=== PATIENT | female | born 1985 | race Caucasian/White ===

== ENCOUNTER 2018-12-25 12:52 | Emergency (ER) | payer OTHER ==
[~2018-12-25] VITALS: Ht 175.2 cm; Wt 68.0 kg
[2018-12-25] MEDS ORDERED: AMOXICILLIN500 M2 PO (14:40)
[2018-12-25] MEDS ORDERED: DIFLUCAN150 MG PO (14:42)
== END 2018-12-25 14:49 | disposition home or self-care (01) ==
LOC: ED 12:52
DX: J02.9 Acute pharyngitis, unspecified (principal); R51 Headache; H92.02 Otalgia, left ear; R09.89 Other specified symptoms and signs involving the circulatory and respiratory systems; Z88.0 Allergy status to penicillin

== ENCOUNTER 2019-04-06 17:57 | Emergency (ER) | payer OTHER ==
[~2019-04-06] VITALS: Ht 175.2 cm; Wt 72.6 kg
[~2019-04-06 17:57] MED LIST: AMOXICILLIN500 M2 PO; DIFLUCAN150 MG PO
[2019-04-06] MEDS ORDERED: AMOXICILLIN500 M2 PO (20:06)
== END 2019-04-06 20:11 | disposition home or self-care (01) ==
LOC: ED 17:57
DX: J32.9 Chronic sinusitis, unspecified (principal); Z88.0 Allergy status to penicillin; Z79.2 Long term (current) use of antibiotics

== ENCOUNTER 2019-04-09 14:04 | Emergency (ER) | payer OTHER ==
[~2019-04-09] VITALS: Ht 175.2 cm; Wt 72.6 kg
[2019-04-09] MEDS ORDERED: PROAIR HFA8.5 GM INH (15:43)
[2019-04-09] MEDS ORDERED: ZOFRAN4 MG PO (15:43)
== END 2019-04-09 16:15 | disposition home or self-care (01) ==
LOC: ED 14:04
DX: J10.1 Influenza due to other identified influenza virus with other respiratory manifestations (principal); R11.2 Nausea with vomiting, unspecified; R07.9 Chest pain, unspecified; F17.200 Nicotine dependence, unspecified, uncomplicated; Z88.0 Allergy status to penicillin; Z79.2 Long term (current) use of antibiotics

== ENCOUNTER 2020-11-14 23:56 | Emergency (ER) | payer OTHER ==
[~2020-11-14 23:56] MED LIST changes: +PROAIR HFA8.5 GM INH; +ZOFRAN4 MG PO
== END 2020-11-15 01:03 | disposition left against medical advice (07) ==
LOC: ED 23:56
DX: G43.909 Migraine, unspecified, not intractable, without status migrainosus (principal); Z53.21 Procedure and treatment not carried out due to patient leaving prior to being seen by health care provider

== ENCOUNTER 2020-12-19 11:50 | Emergency (ER) | payer OTHER ==
[~2020-12-19] VITALS: Ht 175.2 cm; Wt 59.0 kg
== END 2020-12-19 14:17 | disposition home or self-care (01) ==
LOC: ED 11:50
DX: G43.909 Migraine, unspecified, not intractable, without status migrainosus (principal); Z88.0 Allergy status to penicillin; F17.200 Nicotine dependence, unspecified, uncomplicated

== ENCOUNTER 2022-07-01 12:47 | Emergency (ER) | payer OTHER ==
[~2022-07-01] VITALS: Ht 175.2 cm; Wt 62.6 kg
[2022-07-01 13:44] LABS: BASO # 0.1 10*3/uL (0.0-0.1); BASO % 0.6 % (0.0-1.0); EOS # 0.2 10*3/uL (0.0-0.4); EOS % 2.3 % (1.0-4.0); HEMATOCRIT 43.5 % (37.0-47.0); LYMPH # 3.1 10*3/uL (1.3-4.4); MEAN CELL VOLUME 92.8 fl (81.0-99.0); MEAN CORPUSCULAR HGB 30.5 pg (27.0-31.0); MEAN CORPUSCULAR HGB CONC 32.9 g/dl (33.0-37.0); MEAN PLATELET VOLUME 10.6 fl (9.6-12.3); MONO # 0.8 10*3/uL (0.1-1.0); MONO % 8.6 % (3.0-9.0); NEUT # 4.6 10*3/uL (2.3-7.9); NEUT % 53.3 % (47.0-73.0); PLATELET COUNT AUTOMATED 268 10*3/uL (130-400); RED BLOOD COUNT 4.69 10*6/uL (4.10-5.10); WHITE BLOOD COUNT 8.7 10*3/uL (4.8-10.8)
[2022-07-01 13:59] LABS: BETA-HCG, QUANT < 3.0 mIU/mL (0-10); LIPASE 53 U/L (12-53)
[2022-07-01 14:00] LABS: ALKALINE PHOSPHATASE 55 U/L (46-116); BUN 12 mg/dl (9-23); CHLORIDE 103 mmol/L (98-107); POTASSIUM 3.1 mmol/L (3.4-5.1); SGPT/ALT 12 U/L (10-49); TOTAL PROTEIN 6.7 gm/dL (6.0-8.0)
== END 2022-07-01 18:04 | disposition home or self-care (01) ==
LOC: ED 12:47
PROVIDERS: Emergency Medicine
DX: R07.9 Chest pain, unspecified (principal); R42 Dizziness and giddiness; Z88.0 Allergy status to penicillin

== ENCOUNTER → 2022-07-29 | Outpatient (CLI) | payer OTHER | END | disposition home or self-care (01) | LOC: RAD 08:32 | PROVIDERS: ATTEND Internal Medicine | DX: M79.672 Pain in left foot (principal) ==

== ENCOUNTER → 2022-08-18 | Outpatient (CLI) | payer OTHER | END | disposition home or self-care (01) | LOC: US 16:32 | PROVIDERS: ATTEND Internal Medicine | DX: I10 Essential (primary) hypertension (principal); R73.9 Hyperglycemia, unspecified ==

== ENCOUNTER 2023-02-15 15:49 | Emergency (ER) | payer SELFPAY ==
[~2023-02-15] VITALS: Wt 65.8 kg
[2023-02-15] MEDS ORDERED: MELOXICAM7.5 MG PO (18:38)
[2023-02-15] MEDS ORDERED: CYCLOBENZAPRINE5 M3 PO (18:38)
== END 2023-02-15 18:21 | disposition home or self-care (01) ==
LOC: ED 15:49
DX: M54.12 Radiculopathy, cervical region (principal); M79.601 Pain in right arm; R20.0 Anesthesia of skin; Z88.0 Allergy status to penicillin

== ENCOUNTER 2024-05-05 12:07 | Emergency (ER) | payer SELFPAY ==
[~2024-05-05] VITALS: Ht 175.2 cm; Wt 64.9 kg
[~2024-05-05 12:07] MED LIST changes: +CYCLOBENZAPRINE5 M3 PO; +MELOXICAM7.5 MG PO
[2024-05-05] MEDS ORDERED: hydrOXYzine pamoate 25 MG CAP PO ONE (15:15)
== END 2024-05-05 15:10 | disposition home or self-care (01) ==
LOC: ED 12:07
DX: R07.89 Other chest pain (principal); R06.02 Shortness of breath; Z88.0 Allergy status to penicillin